=== PATIENT | male | born 1985 | race African-American/Black ===

== ENCOUNTER 2019-06-19 07:40 | Emergency (ER) | payer BC ==
[2019-06-19] MEDS ORDERED: Acetaminophen 500 MG TAB ONE (08:19)
[2019-06-19] MEDS ORDERED: diphenhydrAMINE 50 MG/ML VIAL ONE (08:19)
[2019-06-19] MEDS ORDERED: Metoclopramide HCl 10 MG/2 ML VIAL ONE (08:19)
--- NOTE | 2019-06-19 08:27 | CT ---
Exam: Head CT without contrast HISTORY: Headache x2 weeks. Congestion x2 weeks. COMPARISON: 05/11/2013 FINDINGS: Hemorrhage: No intraparenchymal hemorrhage or extra-axial hematoma. Brain parenchyma: Cortical ramos-white matter differentiation is preserved. No mass effect or midline shift. Basilar cisterns are patent. Ventricular system: Ventricles and sulci are patent and symmetric. Calvarium: Intact. Sinuses and mastoid air cells: Adequate aeration. IMPRESSION: No acute intracranial process.
[2019-06-19] MEDS ORDERED: Ketorolac Tromethamine 30 MG/ML VIAL ONE (09:50)
[2019-06-19] MEDS ORDERED: Magnesium 2 GM/50 ML BAG (IN WATER) ONE (09:50)
== END 2019-06-19 11:20 | disposition home or self-care (01) ==
LOC: ERS 07:40
DX: J01.90 Acute sinusitis, unspecified (principal); I10 Essential (primary) hypertension; Z79.899 Other long term (current) drug therapy
CPT/HCPCS: 70450; 96361; 96365; 96367; 96375; J1200; J1885; J2765; J3475

== ENCOUNTER 2020-05-15 02:31 | Emergency (ER) | payer BC, SELFPAY ==
[2020-05-15] MEDS ORDERED: Morphine 4 MG/ML VIAL ONE (03:32)
[2020-05-15] MEDS ORDERED: Ondansetron PF 4 MG/2 ML Vial ONE (03:32)
[2020-05-15 03:35] LABS: ALT (SGPT) 40 U/L (8-55); AST (SGOT) 22 U/L (5-34); Albumin 3.8 g/dL (3.5-5.0); Alkaline Phosphatase 108 U/L (40-110); Anion Gap 14 mmol/L (10-20); BUN (Urea Nitrogen) 15 mg/dL (8.9-20.6); Bilirubin, Total 0.2 mg/dL (0.2-1.2); Calc. Creatinine Clearance 0 mL/min (70-130); Calcium 8.8 mg/dL (7.8-10.44); Carbon Dioxide 18 mmol/L (22-29); Chloride 108 mmol/L (98-107); Globulin 3.7 g/dL (2.4-3.5); Glucose 137 mg/dL (70-105); Potassium 4.3 mmol/L (3.5-5.1); Protein, Total 7.5 g/dL (6.0-8.3); Sodium 136 mmol/L (136-145)
[2020-05-15 03:51] LABS: Band 3 % (5-11); Eosinophils 1 % (0-10); Hemoglobin 15.1 g/dL (14.0-18.0); Lymphocytes 32 % (21-51); MDiff Complete? YES; Mean Corpuscular HGB CONC 34.3 g/dL (32.0-36.0); Mean Corpuscular Hemoglobin 30.8 pg (27.0-31.0); Mean Corpuscular Volume 89.8 fL (78.0-98.0); Mean Platelet Volume 6.6 fL (7.4-10.4); Monocytes 6 % (0-10); Neutrophil 58 % (42-75); Platelet Count 232 thou/uL (130-400); RBC Distribution Width 12.1 % (11.5-14.5); Red Blood Cell (RBC) Count 4.91 mill/uL (4.70-6.10); White Blood Cell (WBC) Count 12.6 thou/uL (4.8-10.8)
[2020-05-15 04:08] LABS: Cocaine Metabolite Screen Not Detected (NotDetected); Medtox Reader # READER 4; Opiate Screen Not Detected (NotDetected); THC/Cannabinoid Screen Not Detected (NotDetected)
[2020-05-15 04:09] LABS: Amphetamine Detected (NotDetected); Barbiturates Screen Not Detected (NotDetected); Benzodiazepine Screen Not Detected (NotDetected); Medtox Control Line Valid? VALID (VALID); Methadone Not Detected (NotDetected); Methamphetamine Detected (NotDetected); Oxycodone Screen Not Detected (NotDetected); Phencyclidine (PCP) Detected (NotDetected); Tricyclic Screen Not Detected (NotDetected)
[2020-05-15] MEDS ORDERED: Lidocaine Viscous Sol 2% 15 ml UD Cup ONE (04:14)
[2020-05-15] MEDS ORDERED: Mag-Al 1200 mg/1200 mg/30 ML UDCUP ONE (04:14)
--- NOTE | 2020-05-15 07:44 | RAD ---
PORTABLE CHEST: DATE: 05/15/2020. PROVIDED CLINICAL HISTORY: Chest pain. FINDINGS: Comparison . Cardiac and mediastinal silhouette is within normal limits. No focal consoli dation, pleural fluid, or pneumothorax apparent. IMPRESSION: No evidence for an acute cardiopulmonary process. POS: NICOLE
--- NOTE | 2020-05-17 15:18 | EKG ---
Test Reason : Blood Pressure : / mmHG Vent. Rate : 103 BPM Atrial Rate : 103 BPM P-R Int : 140 ms QRS Dur : 084 ms QT Int : 340 ms P-R-T Axes : 054 052 052 degrees QTc Int : 445 ms Sinus tachycardia Nonspecific ST and T wave abnormality Abnormal ECG Confirmed by SHELDON PORTER M.D. ([id number]), digital editor SHAYE SHEFFIELD ([id number]) on 05/17/2020 3:17:41 PM Referred By: Confirmed By:SHELDON PORTER M.D.
== END 2020-05-15 05:40 | disposition home or self-care (01) ==
LOC: ERS 02:31
DX: R07.9 Chest pain, unspecified (principal); I10 Essential (primary) hypertension; F17.210 Nicotine dependence, cigarettes, uncomplicated; Z79.899 Other long term (current) drug therapy
CPT/HCPCS: 36415; 71045; 80053; 80306; 84484; 85025; 93005; 96374; 96375; J2270; J2405

== ENCOUNTER 2021-05-05 05:47 | Emergency (ER) | payer SELFPAY | END 2021-05-05 06:15 | LOC: ERS 05:47 | DX: Z02.89 Encounter for other administrative examinations (principal); I10 Essential (primary) hypertension; F17.210 Nicotine dependence, cigarettes, uncomplicated | CPT/HCPCS: 99283 ==

== ENCOUNTER 2021-12-06 02:25 | Emergency (ER) | payer SELFPAY | END 2021-12-06 03:02 | LOC: ERS 02:25 | DX: Z76.89 Persons encountering health services in other specified circumstances (principal); E78.2 Mixed hyperlipidemia; I10 Essential (primary) hypertension; F17.210 Nicotine dependence, cigarettes, uncomplicated | CPT/HCPCS: 99283 ==

== ENCOUNTER 2022-07-23 01:58 | Inpatient (IN) | payer BC, SELFPAY ==
[2022-07-23] MEDS ORDERED: CEFAZOLIN 2 GM VIAL ONE (02:12)
[2022-07-23] MEDS ORDERED: Boostrix 0.5 ML (Tdap) VIAL (>/=7 yrs of age) ONE (02:12)
[2022-07-23 02:15] LABS: #Basophils 0.1 thou/uL (0.0-0.2); #Eosinphils 0.2 thou/uL (0.0-0.7); #Lymphocytes 4.2 thou/uL (1.20-3.40); #Monocytes 0.9 thou/uL (0.11-0.59); #Neutrophils 7.8 thou/uL (1.40-6.50); %Basophils 0.4 % (0.0-1.0); %Eosinophils 1.3 % (0.0-10.0); %Lymphocytes 31.9 % (21.0-51.0); %Monocytes 6.9 % (0.0-10.0); %Neutrophils 59.5 % (42.0-75.0); Hemoglobin 14.3 g/dL (14.0-18.0); Mean Corpuscular HGB CONC 33.8 g/dL (32.0-36.0); Mean Corpuscular Volume 91.7 fl (78.0-98.0); Mean Platelet Volume 6.5 fL (7.4-10.4); Platelet Count 283 10x3/uL (130-400); RBC Distribution Width 12.6 % (11.5-14.5); White Blood Cell (WBC) Count 13.2 10x3/uL (4.8-10.8)
[2022-07-23] MEDS ORDERED: Tranexamic Acid 1,000 MG/10 ML VIAL ONE ×2 (02:16→02:50)
[2022-07-23 02:23] LABS: PTT 25.8 sec (22.9-36.1)
[2022-07-23 02:45] LABS: ALT (SGPT) 32 U/L (8-55); AST (SGOT) 25 U/L (5-34); Albumin 4.1 g/dL (3.5-5.0); Alkaline Phosphatase 89 U/L (40-110); Anion Gap 19 mmol/L (10-20); BUN (Urea Nitrogen) 21 mg/dL (8.9-20.6); Bilirubin, Total 0.4 mg/dL (0.2-1.2); Calc. Creatinine Clearance 0 mL/min (70-130); Carbon Dioxide 16 mmol/L (22-29); Chloride 109 mmol/L (98-107); Estimated GFR 55; Globulin 3.2 g/dL (2.4-3.5); Glucose 154 mg/dL (70-105); Potassium 3.4 mmol/L (3.5-5.1); Protein, Total 7.3 g/dL (6.0-8.3); Sodium 141 mmol/L (136-145)
[2022-07-23] MEDS ORDERED: Dextrose 50% Abboject 50 ML SYRINGE SLOW IVP PRN (02:57)
[2022-07-23] MEDS ORDERED: Ipratropium/Albuterol 3 ML NEB NEB PRN (02:57)
[2022-07-23] MEDS ORDERED: Dextrose 5% in Water 1,000 ML IV PRN (02:57)
[2022-07-23] MEDS ORDERED: Morphine 2 MG/ML VIAL SLOW IVP PRN (02:57)
[2022-07-23] MEDS ORDERED: Ondansetron PF 4 MG/2 ML Vial IVP PRN (02:57)
[2022-07-23] MEDS ORDERED: HumaLOG 300 UNITS/3 ML VIAL SC PRN (02:57)
[2022-07-23] MEDS ORDERED: Sodium Chloride 0.9% 1,000 ML IV SCH (03:00)
[2022-07-23 03:20] LABS: Bacteria/HPF None Seen HPF (None Seen); Bilirubin Negative (Negative); Blood, Urine Negative (Negative); Clarity Clear (Clear); Glucose, Urine (Dipstick) 100 mg/dL (Negative); Ketone, Urine Negative (Negative); Leukocyte Negative Leu/uL (Negative); Nitrite Negative (Negative); Protein, Urine (Dipstick) 50 mg/dL (Neg-Trace); RBC/HPF 0-3 HPF (0-3); Specific Gravity, Urine 1.033 (1.002-1.036); Squamous Epithelial None Seen HPF (0-3); Urobilinogen Normal mg/dL (Less than 2); WBC/HPF 0-3 HPF (0-3)
[2022-07-23 03:28] LABS: Amphetamine Detected (NotDetected); Barbiturates Screen Not Detected (NotDetected); Benzodiazepine Screen Not Detected (NotDetected); Cocaine Metabolite Screen Not Detected (NotDetected); Methadone Not Detected (NotDetected); Methamphetamine Detected (NotDetected); Opiate Screen Not Detected (NotDetected); Oxycodone Screen Not Detected (NotDetected); Phencyclidine (PCP) Detected (NotDetected); THC/Cannabinoid Screen Not Detected (NotDetected); Tricyclic Screen Not Detected (NotDetected)
[2022-07-23] MEDS ORDERED: Morphine 4 MG/ML VIAL SLOW IVP PRN (03:36)
[2022-07-23 03:37] LABS: #Eosinphils 0.1 thou/uL (0.0-0.7); #Lymphocytes 2.3 thou/uL (1.20-3.40); #Monocytes 1.3 thou/uL (0.11-0.59); #Neutrophils 15.9 thou/uL (1.40-6.50); %Basophils 0.2 % (0.0-1.0); %Eosinophils 0.5 % (0.0-10.0); %Lymphocytes 11.8 % (21.0-51.0); %Monocytes 6.8 % (0.0-10.0); %Neutrophils 80.7 % (42.0-75.0); Hemoglobin 13.9 g/dL (14.0-18.0); Mean Corpuscular HGB CONC 35.3 g/dL (32.0-36.0); Mean Corpuscular Hemoglobin 32.3 pg (27.0-31.0); Mean Corpuscular Volume 91.5 fl (78.0-98.0); Mean Platelet Volume 6.6 fL (7.4-10.4); Platelet Count 212 10x3/uL (130-400); RBC Distribution Width 12.5 % (11.5-14.5); Red Blood Cell (RBC) Count 4.32 mill/uL (4.70-6.10); White Blood Cell (WBC) Count 19.7 10x3/uL (4.8-10.8)
[2022-07-23] MEDS ORDERED: Cyclobenzaprine 10 MG TAB PO PRN (03:37)
[2022-07-23] MEDS ORDERED: traMADol HCl 50 MG TAB PO PRN (03:37)
[2022-07-23 03:54] LABS: Prothrombin Time 14.1 sec (12.0-14.7)
[2022-07-23 03:57] LABS: Anion Gap 15 mmol/L (10-20); BUN (Urea Nitrogen) 19 mg/dL (8.9-20.6); Calc. Creatinine Clearance 0 mL/min (70-130); Calcium 7.8 mg/dL (7.8-10.44); Carbon Dioxide 20 mmol/L (22-29); Chloride 108 mmol/L (98-107); Estimated GFR 61; Glucose 158 mg/dL (70-105); Potassium 3.3 mmol/L (3.5-5.1); Sodium 140 mmol/L (136-145)
[2022-07-23 03:58] LABS: ALT (SGPT) 28 U/L (8-55); AST (SGOT) 22 U/L (5-34); Albumin 3.6 g/dL (3.5-5.0); Alkaline Phosphatase 71 U/L (40-110); Anion Gap 14 mmol/L (10-20); BUN (Urea Nitrogen) 20 mg/dL (8.9-20.6); Bilirubin, Total 0.6 mg/dL (0.2-1.2); CK (CPK) 620 U/L (30-200); Calc. Creatinine Clearance 0 mL/min (70-130); Calcium 7.9 mg/dL (7.8-10.44); Carbon Dioxide 20 mmol/L (22-29); Chloride 109 mmol/L (98-107); Estimated GFR 61; Globulin 2.6 g/dL (2.4-3.5); Glucose 159 mg/dL (70-105); Potassium 3.3 mmol/L (3.5-5.1); Protein, Total 6.2 g/dL (6.0-8.3); Sodium 140 mmol/L (136-145)
[2022-07-23] MEDS: Acetaminophen 500 MG TAB PO SCH ×4 (04:19→21:00)
[2022-07-23] MEDS: Dexamethasone 4 mg/ml Vial SLOW IVP SCH ×3 (04:22→19:11)
[2022-07-23 04:34] VITALS: BMI 40.6
[2022-07-23 04:46] LABS: Acetaminophen Less than 10.0 mcg/mL (10.0-30.0); Alcohol Less than 10 mg/dL (Less than 10); Salicylate Less than 8.0 mg/dL (15.0-30.0)
[2022-07-23] MEDS: CEFAZOLIN 2 GM in Sodium Chloride 0.9% 100 ML IVPB SCH ×3 (05:05→21:00)
[2022-07-23] MEDS: traMADol HCl 50 MG TAB PO SCH ×4 (05:05→23:10)
[2022-07-23 05:53] LABS: #Lymphocytes 1.4 thou/uL (1.20-3.40); #Monocytes 1.4 thou/uL (0.11-0.59); #Neutrophils 14.8 thou/uL (1.40-6.50); %Basophils 0.3 % (0.0-1.0); %Eosinophils 0.2 % (0.0-10.0); %Lymphocytes 8.1 % (21.0-51.0); %Monocytes 7.7 % (0.0-10.0); %Neutrophils 83.7 % (42.0-75.0); Hemoglobin 14.5 g/dL (14.0-18.0); Mean Corpuscular HGB CONC 33.5 g/dL (32.0-36.0); Mean Corpuscular Hemoglobin 30.6 pg (27.0-31.0); Mean Corpuscular Volume 91.4 fl (78.0-98.0); Mean Platelet Volume 6.6 fL (7.4-10.4); Platelet Count 227 10x3/uL (130-400); RBC Distribution Width 12.6 % (11.5-14.5); Red Blood Cell (RBC) Count 4.75 mill/uL (4.70-6.10); White Blood Cell (WBC) Count 17.7 10x3/uL (4.8-10.8)
[2022-07-23 06:08] LABS: Lactic Acid 2.5 mmol/L (0.5-2.2)
[2022-07-23 06:27] LABS: Anion Gap 18 mmol/L (10-20); BUN (Urea Nitrogen) 19 mg/dL (8.9-20.6); Calc. Creatinine Clearance 145 mL/min (70-130); Calcium 8.6 mg/dL (7.8-10.44); Carbon Dioxide 17 mmol/L (22-29); Chloride 109 mmol/L (98-107); Estimated GFR 67; Glucose 144 mg/dL (70-105); Magnesium 2.4 mg/dL (1.6-2.6); Phosphorus 2.3 mg/dL (2.3-4.7); Potassium 3.4 mmol/L (3.5-5.1); Sodium 141 mmol/L (136-145)
[2022-07-23] MEDS: Albuterol 200 PUFF (6.7GM INHALER) INH SCH ×3 (07:20→19:33)
[2022-07-23] MEDS: Famotidine/PF 20 mg/2ml Vial SLOW IVP SCH ×2 (07:39→20:23)
[2022-07-23] MEDS ORDERED: Potassium Chloride 20 MEQ in Premix Bag 1 BAG IVPB SCH (08:30)
[2022-07-23] MEDS: Ibuprofen 200 MG TAB PO SCH ×2 (10:44→17:58)
[2022-07-23] MEDS ORDERED: Iopamidol-370 76% 500 ML MDV (1 ML CHARGE) ONE (11:11)
[2022-07-23] MEDS ORDERED: MD-Gastroview 120 ML BOT ONE (11:42)
[2022-07-23] MEDS ORDERED: Lidocaine 1% (PF) 30 ML VIAL ONE (12:06)
[2022-07-23] MEDS ORDERED: Lidocaine 1% (PF) 30 ML VIAL SC SCH (13:00)
[2022-07-24] MEDS: Ibuprofen 200 MG TAB PO SCH ×3 (03:30→18:12)
[2022-07-24 03:54] LABS: #Eosinphils 0.1 thou/uL (0.0-0.7); #Lymphocytes 1.2 thou/uL (1.20-3.40); #Monocytes 1.3 thou/uL (0.11-0.59); #Neutrophils 16.9 thou/uL (1.40-6.50); %Eosinophils 0.3 % (0.0-10.0); %Lymphocytes 6.1 % (21.0-51.0); %Monocytes 6.8 % (0.0-10.0); %Neutrophils 86.8 % (42.0-75.0); Hemoglobin 14.6 g/dL (14.0-18.0); Mean Corpuscular HGB CONC 34.7 g/dL (32.0-36.0); Mean Corpuscular Hemoglobin 31.7 pg (27.0-31.0); Mean Corpuscular Volume 91.3 fl (78.0-98.0); Mean Platelet Volume 6.5 fL (7.4-10.4); Platelet Count 231 10x3/uL (130-400); RBC Distribution Width 12.6 % (11.5-14.5); Red Blood Cell (RBC) Count 4.61 mill/uL (4.70-6.10); White Blood Cell (WBC) Count 19.5 10x3/uL (4.8-10.8)
[2022-07-24] MEDS: Acetaminophen 500 MG TAB PO SCH ×4 (04:00→21:48)
[2022-07-24] MEDS: Dexamethasone 4 mg/ml Vial SLOW IVP SCH (04:00)
[2022-07-24 04:09] LABS: Lactic Acid 0.8 mmol/L (0.5-2.2)
[2022-07-24 04:31] LABS: Anion Gap 11 mmol/L (10-20); BUN (Urea Nitrogen) 15 mg/dL (8.9-20.6); Calc. Creatinine Clearance 214 mL/min (70-130); Calcium 8.8 mg/dL (7.8-10.44); Carbon Dioxide 22 mmol/L (22-29); Chloride 107 mmol/L (98-107); Estimated GFR 108; Glucose 108 mg/dL (70-105); Magnesium 2.3 mg/dL (1.6-2.6); Phosphorus 3.3 mg/dL (2.3-4.7); Potassium 3.9 mmol/L (3.5-5.1); Sodium 136 mmol/L (136-145)
[2022-07-24] MEDS: traMADol HCl 50 MG TAB PO SCH ×4 (05:04→23:37)
[2022-07-24] MEDS: CEFAZOLIN 2 GM in Sodium Chloride 0.9% 100 ML IVPB SCH ×3 (05:04→21:49)
[2022-07-24] MEDS: Albuterol 200 PUFF (6.7GM INHALER) INH SCH ×3 (08:15→19:14)
[2022-07-24] MEDS: Famotidine/PF 20 mg/2ml Vial SLOW IVP SCH ×2 (10:29→20:28)
[2022-07-25] MEDS: Ibuprofen 200 MG TAB PO SCH ×2 (03:47→11:39)
[2022-07-25] MEDS: Acetaminophen 500 MG TAB PO SCH ×3 (03:47→15:04)
[2022-07-25] MEDS: CEFAZOLIN 2 GM in Sodium Chloride 0.9% 100 ML IVPB SCH ×2 (05:45→15:03)
[2022-07-25] MEDS: traMADol HCl 50 MG TAB PO SCH ×2 (05:47→11:40)
[2022-07-25 07:07] LABS: #Eosinphils 0.1 thou/uL (0.0-0.7); #Lymphocytes 2.7 thou/uL (1.20-3.40); #Monocytes 1.3 thou/uL (0.11-0.59); #Neutrophils 12.4 thou/uL (1.40-6.50); %Eosinophils 0.5 % (0.0-10.0); %Lymphocytes 16.5 % (21.0-51.0); %Monocytes 7.8 % (0.0-10.0); %Neutrophils 75.2 % (42.0-75.0); Hemoglobin 14.1 g/dL (14.0-18.0); Mean Corpuscular HGB CONC 32.8 g/dL (32.0-36.0); Mean Corpuscular Hemoglobin 30.1 pg (27.0-31.0); Mean Corpuscular Volume 91.6 fl (78.0-98.0); Mean Platelet Volume 6.8 fL (7.4-10.4); Platelet Count 245 10x3/uL (130-400); RBC Distribution Width 12.9 % (11.5-14.5); Red Blood Cell (RBC) Count 4.69 mill/uL (4.70-6.10); White Blood Cell (WBC) Count 16.5 10x3/uL (4.8-10.8)
[2022-07-25] MEDS: Albuterol 200 PUFF (6.7GM INHALER) INH SCH (08:51)
[2022-07-25] MEDS: Famotidine/PF 20 mg/2ml Vial SLOW IVP SCH (09:09)
[2022-07-25 12:59] VITALS: BP 131/81; TEMP 98.3
== END 2022-07-25 15:41 | disposition home or self-care (01) | DRG 199 ==
LOC: EDBD → ERS 01:58 → CCU 02:57 → SJJU 07-24 08:23
PROVIDERS: ADMIT Student in an Organized Health Care Education/Training Program; ATTEND Student in an Organized Health Care Education/Training Program
PROC: 30233N1 Transfusion of Nonautologous Red Blood Cells into Peripheral Vein, Percutaneous Approach (ICD-10-PCS; principal; 2022-07-23)
PROC: 30233K1 Transfusion of Nonautologous Frozen Plasma into Peripheral Vein, Percutaneous Approach (ICD-10-PCS; 2022-07-23)
DX: S27.2XXA Traumatic hemopneumothorax, initial encounter (principal); T79.4XXA Traumatic shock, initial encounter; J90 Pleural effusion, not elsewhere classified; S21.141A Puncture wound with foreign body of right front wall of thorax without penetration into thoracic cavity, initial encounter; S22.41XA Multiple fractures of ribs, right side, initial encounter for closed fracture; S27.329A Contusion of lung, unspecified, initial encounter; N17.9 Acute kidney failure, unspecified; S10.93XA Contusion of unspecified part of neck, initial encounter; I10 Essential (primary) hypertension; F15.10 Other stimulant abuse, uncomplicated; W34.00XA Accidental discharge from unspecified firearms or gun, initial encounter; F10.129 Alcohol abuse with intoxication, unspecified; T79.7XXA Traumatic subcutaneous emphysema, initial encounter; S42.001A Fracture of unspecified part of right clavicle, initial encounter for closed fracture
CPT/HCPCS: 36415; 36416; 36430; 70450; 70486; 70498; 71045; 71260; 74177; 74220; 76377; 80048; 80053; 80306; 80307; 81003; 81015; 82550; 83605; 83735; 84100; 84484; 85025; 85610; 85730; 86850; 86900; 86901; 90715; 93005; G0390; J1100; J1885; J2001; J2270; J2272; J3480; J3490; J7050; P9016; P9048; Q9963; Q9967; S0028

== ENCOUNTER 2022-07-26 00:46 | Emergency (ER) | payer BC, SELFPAY ==
[2022-07-26] MEDS ORDERED: HYDROcodone/Acetaminophen 5/325 mg Tablet ONE (00:59)
[2022-07-26] MEDS ORDERED: Ketorolac Tromethamine 30 MG/ML VIAL ONE (00:59)
[2022-07-26 01:12] LABS: #Eosinphils 0.1 thou/uL (0.0-0.7); #Lymphocytes 4.5 thou/uL (1.20-3.40); #Monocytes 1.3 thou/uL (0.11-0.59); #Neutrophils 9.5 thou/uL (1.40-6.50); %Basophils 0.2 % (0.0-1.0); %Eosinophils 0.6 % (0.0-10.0); %Monocytes 8.3 % (0.0-10.0); %Neutrophils 61.8 % (42.0-75.0); Hemoglobin 15.6 g/dL (14.0-18.0); Mean Corpuscular HGB CONC 35.1 g/dL (32.0-36.0); Mean Corpuscular Hemoglobin 32.1 pg (27.0-31.0); Mean Corpuscular Volume 91.6 fl (78.0-98.0); Mean Platelet Volume 6.6 fL (7.4-10.4); Platelet Count 258 10x3/uL (130-400); RBC Distribution Width 12.8 % (11.5-14.5); Red Blood Cell (RBC) Count 4.86 mill/uL (4.70-6.10); White Blood Cell (WBC) Count 15.3 10x3/uL (4.8-10.8)
[2022-07-26 01:33] LABS: ALT (SGPT) 27 U/L (8-55); AST (SGOT) 40 U/L (5-34); Albumin 3.9 g/dL (3.5-5.0); Alkaline Phosphatase 87 U/L (40-110); Anion Gap 16 mmol/L (10-20); BUN (Urea Nitrogen) 19 mg/dL (8.9-20.6); Bilirubin, Total 0.4 mg/dL (0.2-1.2); CK (CPK) 1673 U/L (30-200); Calc. Creatinine Clearance 0 mL/min (70-130); Carbon Dioxide 24 mmol/L (22-29); Chloride 106 mmol/L (98-107); Estimated GFR 76; Globulin 3.5 g/dL (2.4-3.5); Glucose 104 mg/dL (70-105); Potassium 3.7 mmol/L (3.5-5.1); Protein, Total 7.4 g/dL (6.0-8.3); Sodium 142 mmol/L (136-145)
== END 2022-07-26 02:35 | disposition home or self-care (01) ==
LOC: ERS 00:46 → EDBD 00:46 → ERS 02:35
DX: M94.0 Chondrocostal junction syndrome [Tietze] (principal); R07.89 Other chest pain; D72.829 Elevated white blood cell count, unspecified; I10 Essential (primary) hypertension; F17.210 Nicotine dependence, cigarettes, uncomplicated; Z79.899 Other long term (current) drug therapy
CPT/HCPCS: 36415; 71045; 80053; 82550; 83605; 84484; 85025; 93005; J1885